=== PATIENT | male | born 1990 | race Caucasian/White ===

== ENCOUNTER 2020-12-16 13:48 | Outpatient (RCR) | payer MEDICAID, SELFPAY | END 2020-12-28 23:59 | disposition home or self-care (01) | LOC: WOUND 13:48 | PROVIDERS: Visit Provider Thoracic Surgery (Cardiothoracic Vascular Surgery) | DX: L89.154 Pressure ulcer of sacral region, stage 4 (principal); L89.224 Pressure ulcer of left hip, stage 4; L89.894 Pressure ulcer of other site, stage 4; L89.522 Pressure ulcer of left ankle, stage 2 | CPT/HCPCS: 11042; 11045; G0463 ==

== ENCOUNTER 2021-01-06 13:07 | Outpatient (CLI) | payer MEDICAID, SELFPAY | END 2021-01-06 13:08 | disposition home or self-care (01) | LOC: WOUND 13:07 | PROVIDERS: Visit Provider Nurse Practitioner Family | DX: I96 Gangrene, not elsewhere classified (principal); L89.154 Pressure ulcer of sacral region, stage 4; L89.224 Pressure ulcer of left hip, stage 4; L89.622 Pressure ulcer of left heel, stage 2; F17.210 Nicotine dependence, cigarettes, uncomplicated | CPT/HCPCS: 11042; 11045 ==

== ENCOUNTER 2021-01-13 14:11 | Outpatient (CLI) | payer MEDICAID, SELFPAY | END 2021-01-13 14:12 | disposition home or self-care (01) | LOC: WOUND 14:13 | PROVIDERS: Visit Provider Thoracic Surgery (Cardiothoracic Vascular Surgery) | DX: L89.154 Pressure ulcer of sacral region, stage 4 (principal); L89.224 Pressure ulcer of left hip, stage 4; L89.894 Pressure ulcer of other site, stage 4; F17.210 Nicotine dependence, cigarettes, uncomplicated | CPT/HCPCS: 11042; 11045; 97597 ==

== ENCOUNTER 2021-01-30 13:22 | Outpatient (CLI) | payer MEDICAID, SELFPAY | END 2021-01-30 13:23 | disposition home or self-care (01) | LOC: WOUND 13:22 | PROVIDERS: Visit Provider Nurse Practitioner Family | DX: I96 Gangrene, not elsewhere classified (principal); L89.154 Pressure ulcer of sacral region, stage 4; L89.224 Pressure ulcer of left hip, stage 4; L89.894 Pressure ulcer of other site, stage 4; F17.210 Nicotine dependence, cigarettes, uncomplicated | CPT/HCPCS: 11042; 11045 ==

== ENCOUNTER 2021-02-13 13:15 | Outpatient (CLI) | payer MEDICAID, SELFPAY | END 2021-02-13 13:16 | disposition home or self-care (01) | LOC: WOUND 13:15 | PROVIDERS: Visit Provider Emergency Medicine | DX: I96 Gangrene, not elsewhere classified (principal); L89.154 Pressure ulcer of sacral region, stage 4; L89.224 Pressure ulcer of left hip, stage 4; L89.622 Pressure ulcer of left heel, stage 2; F17.210 Nicotine dependence, cigarettes, uncomplicated | CPT/HCPCS: 11042; 11045; 87070; 87077; 87176; 87186; 87205; 99212; A6212 ==

== ENCOUNTER 2021-02-27 10:54 | Outpatient (CLI) | payer MEDICAID, SELFPAY | END 2021-02-27 10:55 | disposition home or self-care (01) | LOC: WOUND 10:54 | PROVIDERS: Visit Provider Emergency Medicine | DX: I96 Gangrene, not elsewhere classified (principal); L89.154 Pressure ulcer of sacral region, stage 4; L89.224 Pressure ulcer of left hip, stage 4; F17.210 Nicotine dependence, cigarettes, uncomplicated | CPT/HCPCS: 11042; A6250 ==

== ENCOUNTER 2021-04-21 14:48 | Outpatient (CLI) | payer MEDICAID, SELFPAY ==
--- NOTE | 2021-04-21 14:56 | CT_ITS ---
WS: [id number] CT CHEST TECHNIQUE: Noncontrast CT of the chest with coronal and sagittal reformatted images. CLINICAL INFORMATION: NODULE COMPARISON: CT abdomen pelvis September 23, 2020 DLP: 610.[address] scans at [facility] use at least one of these dose optimization techniques: automated e xposure control; mA and/or kV adjustment per patient size (includes targeted exams where dose is matc hed to clinical indication); or iterative reconstruction. FINDINGS: Noncalcified left lower lobe pulmonary nodule measuring 11 mm is unchanged since September 23, 2020. Both lungs are well aerated. No acute infiltrates. No focal pneumonia or pleural fluid. Additional tiny n oncalcified nodule right upper lobe measuring 2 mm. No other suspicious pulmonary parenchymal normali ties. No mediastinal or hilar lymphadenopathy. Adrenal glands are normal. Normal GE junction. A few Schmorl's nodes in the mid thoracic spine. Mild disc space narrowing in the mid thoracic spine. CT/CT chest wo con [id number] IMPRESSION: 1. 11 mm noncalcified nodule left lower lobe is unchanged since the prior outs samir CT abdomen pelvis. Recommend 3 month follow-up. 2. Tiny 2mm incidental nodule right upper lobe. 3. No other suspicious findings.
== END 2021-04-21 14:49 | disposition home or self-care (01) ==
PROVIDERS: Visit Provider Family Medicine
DX: R91.1 Solitary pulmonary nodule (principal)
CPT/HCPCS: 71250